=== PATIENT | female | born 1935 | race Caucasian/White ===

== ENCOUNTER → 2016-12-29 | Outpatient (CLI) | payer OTHER ==
[~2016-12-29] MED LIST: AMLO5TAB2 PO; ATOR20TA9 PO; CHOL10002 PO; CYCL1DRO EACHEYE; Clopidogrel Bisulfate PO; ESTR30CR VG; LISI-170 PO; METO25TA35 PO; OMEP-110 PO; magnesium PO; omega 3 PO
== END | disposition home or self-care (01) ==
LOC: CVU 09:44
PROVIDERS: ATTEND Internal Medicine Cardiovascular Disease
DX: I65.23 Occlusion and stenosis of bilateral carotid arteries (principal); I10 Essential (primary) hypertension; I25.2 Old myocardial infarction; Z98.890 Other specified postprocedural states
CPT/HCPCS: 93880

== ENCOUNTER → 2017-04-22 | Outpatient (CLI) | payer OTHER ==
[~2017-04-22] MED LIST changes: +ASPI-515 PO; +CLOP75TA PO; +RANI300T3 PO
== END | disposition home or self-care (01) ==
LOC: CFH 13:02
PROVIDERS: ATTEND Internal Medicine
DX: Z12.31 Encounter for screening mammogram for malignant neoplasm of breast (principal); Z80.3 Family history of malignant neoplasm of breast
CPT/HCPCS: G0202

== ENCOUNTER → 2017-10-26 | Outpatient (CLI) | payer OTHER | END | disposition home or self-care (01) | LOC: CVU 14:48 | PROVIDERS: ATTEND Internal Medicine Cardiovascular Disease | DX: I65.23 Occlusion and stenosis of bilateral carotid arteries (principal) | CPT/HCPCS: 93880 ==

== ENCOUNTER 2018-01-21 09:34 | Observation (INO) | payer OTHER ==
[~2018-01-21] VITALS: Ht 149.9 cm; Wt 58.8 kg
[~2018-01-21 09:34] MED LIST changes: +APIX2.5T PO; +LEVO25TA2 PO
[2018-01-21] MEDS ORDERED: ASPIRIN 81 MG TABLET CHEW ONE (09:59)
[2018-01-21] MEDS ORDERED: ASPIRIN 81 MG TABLET CHEW PO ONE (10:00)
[2018-01-21 10:28] LABS: BASOPHILS # (AUTO) 0.02 x10^3/uL (0-0.1); BASOPHILS % (AUTO) 0 % (0-1); EOSINOPHILS # (AUTO) 0.32 x10^3/uL (0-0.4); EOSINOPHILS % (AUTO) 5 % (1-7); LYMPHOCYTES # (AUTO) 1.61 x10^3/uL (1-3.4); LYMPHOCYTES % (AUTO) 23 % (22-44); MD NO; MEAN CORPUSCULAR HEMOGLOBIN 32.9 pg (27.0-34.8); MEAN CORPUSCULAR HGB CONC 34.2 g/dL (32.4-35.8); MEAN CORPUSCULAR VOLUME 96.2 fL (80-100); MEAN PLATELET VOLUME 8.5 fL (7.4-10.4); MONOCYTES # (AUTO) 0.52 x10^3/uL (0.2-0.8); MONOCYTES % (AUTO) 8 % (2-9); NEUTROPHILS # (AUTO) 4.39 x10^3/uL (1.8-6.8); NEUTROPHILS % (AUTO) 64 % (42-75); PLATELET COUNT 222 x10^3/uL (130-400); RED BLOOD COUNT 4.51 x10^6/uL (3.82-5.3); RED CELL DISTRIBUTION WIDTH 14.6 % (9.6-15.2)
[2018-01-21 10:29] LABS: ANION GAP 9 mmol/L (5-15); CALCIUM 8.8 mg/dL (8.5-10.1); CHLORIDE 103 mmol/L (98-107); CREATININE 0.99 mg/dL (0.55-1.02)
[2018-01-21 10:33] LABS: TROPONIN I < 0.015 ng/mL (0.000-0.045)
[2018-01-21] MEDS ORDERED: ONDANSETRON 2MG/ML, 2ML IVPush PRN (13:00)
[2018-01-21] MEDS ORDERED: ONDANSETRON ODT 4 MG PO PRN (13:00)
[2018-01-21] MEDS ORDERED: ENOXAPARIN 40 MG/0.4 ML SQ SCH (13:00)
[2018-01-21] MEDS ORDERED: POLYETHYLENE GLYCOL 17 GM PACKET PO PRN (13:00)
[2018-01-21] MEDS ORDERED: LABETALOL 5MG/ML, 20ML IVPush PRN (13:00)
[2018-01-21] MEDS ORDERED: morphine SULFATE 10 MG/ML, 1ML IVPush PRN (13:00)
[2018-01-21 13:46] LABS: TROPONIN I < 0.015 ng/mL (0.000-0.045)
[2018-01-21 13:52] VITALS: BP 138/84
[2018-01-21 14:41] VITALS: BP 120/76
[2018-01-21 19:19] LABS: TROPONIN I < 0.015 ng/mL (0.000-0.045)
[2018-01-21 20:36] VITALS: BP 109/58
[2018-01-21] MEDS: APIXABAN 2.5 MG TABLET PO SCH (20:43)
[2018-01-21] MEDS: METOPROLOL TARTRATE 25 MG TABLET PO SCH (20:44)
[2018-01-21] MEDS: LISINOPRIL 20 MG TABLET PO SCH (20:44)
[2018-01-21] MEDS ORDERED: ATORVASTATIN 20 MG TABLET PO SCH (22:00)
[2018-01-21] MEDS: FAMOTIDINE 20 MG TABLET PO SCH (23:37)
[2018-01-22 01:49] VITALS: BP 103/61
[2018-01-22 05:36] LABS: BASOPHILS # (AUTO) 0.06 x10^3/uL (0-0.1); BASOPHILS % (AUTO) 1 % (0-1); EOSINOPHILS # (AUTO) 0.31 x10^3/uL (0-0.4); EOSINOPHILS % (AUTO) 4 % (1-7); LYMPHOCYTES # (AUTO) 1.59 x10^3/uL (1-3.4); LYMPHOCYTES % (AUTO) 22 % (22-44); MD NO; MEAN CORPUSCULAR HEMOGLOBIN 32.2 pg (27.0-34.8); MEAN CORPUSCULAR HGB CONC 33.5 g/dL (32.4-35.8); MEAN CORPUSCULAR VOLUME 96.2 fL (80-100); MEAN PLATELET VOLUME 8.5 fL (7.4-10.4); MONOCYTES # (AUTO) 0.71 x10^3/uL (0.2-0.8); MONOCYTES % (AUTO) 10 % (2-9); NEUTROPHILS # (AUTO) 4.74 x10^3/uL (1.8-6.8); NEUTROPHILS % (AUTO) 64 % (42-75); PLATELET COUNT 208 x10^3/uL (130-400); RED BLOOD COUNT 4.23 x10^6/uL (3.82-5.3); RED CELL DISTRIBUTION WIDTH 14.8 % (9.6-15.2)
[2018-01-22 05:50] LABS: CHLORIDE 105 mmol/L (98-107)
[2018-01-22] MEDS ORDERED: LEVOTHYROXINE 25 MCG TABLET PO SCH (06:00)
[2018-01-22 06:28] LABS: ALANINE AMINOTRANSFERASE 17 U/L (12-78); ALBUMIN 3.6 g/dL (3.4-5.0); ALKALINE PHOSPHATASE 80 U/L (45-117); ANION GAP 10 mmol/L (5-15); BILIRUBIN,TOTAL 0.5 mg/dL (0.2-1.0); CALCIUM 8.7 mg/dL (8.5-10.1); CREATININE 0.86 mg/dL (0.55-1.02); TOTAL PROTEIN 7.1 g/dL (6.4-8.2)
[2018-01-22 06:38] VITALS: BP 112/72
[2018-01-22] MEDS ORDERED: REGADENOSON 0.4 MG/5 ML SYRINGE ONE (08:13)
[2018-01-22] MEDS ORDERED: ATORVASTATIN 20 MG TABLET PO SCH (09:00)
[2018-01-22] MEDS ORDERED: CHOLECALCIFEROL 1,000 UNIT TABLET PO SCH (09:00)
[2018-01-22] MEDS ORDERED: SENNA/DOCUSATE TABLET PO SCH (09:00)
[2018-01-22] MEDS ORDERED: AMLODIPINE 5 MG TABLET PO SCH (09:00)
[2018-01-22 10:02] VITALS: BP 112/73
[2018-01-22] MEDS: APIXABAN 2.5 MG TABLET PO SCH (10:04)
[2018-01-22] MEDS: FAMOTIDINE 20 MG TABLET PO SCH (10:05)
[2018-01-22] MEDS: LISINOPRIL 20 MG TABLET PO SCH (10:05)
[2018-01-22] MEDS: METOPROLOL TARTRATE 25 MG TABLET PO SCH (10:07)
[2018-01-22 13:48] VITALS: BP 137/84
[2018-01-22 14:26] VITALS: BP 117/80
== END 2018-01-22 16:10 | disposition home or self-care (01) ==
LOC: ED 10:38 → EDIP 12:11 → 5SO 13:52 → DCLOUNGE 01-22 16:10
PROVIDERS: ADMIT Hospitalist; ATTEND Hospitalist
DX: R07.89 Other chest pain (principal); E03.9 Hypothyroidism, unspecified; E78.5 Hyperlipidemia, unspecified; I50.20 Unspecified systolic (congestive) heart failure; I11.0 Hypertensive heart disease with heart failure; D68.69 Other thrombophilia; I48.91 Unspecified atrial fibrillation; K21.9 Gastro-esophageal reflux disease without esophagitis; I25.2 Old myocardial infarction; I25.10 Atherosclerotic heart disease of native coronary artery without angina pectoris; Z86.73 Personal history of transient ischemic attack (TIA), and cerebral infarction without residual deficits; Z79.01 Long term (current) use of anticoagulants
CPT/HCPCS: 36415; 71046; 78452; 80048; 80053; 82040; 83735; 83880; 84100; 84443; 84484; 85025; 93005; 93017; 99285; A9502; C9898; G0378; J2785

== ENCOUNTER 2018-08-22 18:21 | Inpatient (IN) | payer MEDICARE, OTHER ==
[~2018-08-22] VITALS: Ht 152.4 cm; Wt 57.8 kg
[~2018-08-22 18:21] MED LIST changes: +AMLO-150 PO; -AMLO5TAB2 PO; +ATOR20TA37 PO; -ATOR20TA9 PO
--- NOTE | 2018-08-22 19:13 | NUR ---
Pt presents for GIB. Pt states intermittent diarrhea x 2 weeks, worse today with bright red blood in stool at 1700 today. Pt denies dizziness. Mild nausea. Mild ABD tenderness to lower quads. No fevers. VSS.
[2018-08-22] MEDS ORDERED: SODIUM CHLORIDE FLUSH 10ML SYR IVF ONE (20:00)
[2018-08-22 20:03] LABS: BASOPHILS # (AUTO) 0.01 x10^3/uL (0-0.1); BASOPHILS % (AUTO) 0 % (0-1); EOSINOPHILS # (AUTO) 0.01 x10^3/uL (0-0.4); EOSINOPHILS % (AUTO) 0 % (1-7); LYMPHOCYTES # (AUTO) 0.91 x10^3/uL (1-3.4); LYMPHOCYTES % (AUTO) 8 % (22-44); MD NO; MEAN CORPUSCULAR HEMOGLOBIN 31.9 pg (27.0-34.8); MEAN CORPUSCULAR HGB CONC 34.3 g/dL (32.4-35.8); MEAN CORPUSCULAR VOLUME 92.9 fL (80-100); MEAN PLATELET VOLUME 8.3 fL (7.4-10.4); MONOCYTES # (AUTO) 0.72 x10^3/uL (0.2-0.8); MONOCYTES % (AUTO) 7 % (2-9); NEUTROPHILS % (AUTO) 85 % (42-75); PLATELET COUNT 208 x10^3/uL (130-400); RED BLOOD COUNT 4.62 x10^6/uL (3.82-5.3)
[2018-08-22 20:14] LABS: INTERNATIONAL NORMALIZED RATIO 1.08 (0.93-1.1); PROTHROMBIN TIME 11.4 Seconds (9.6-11.5)
[2018-08-22 20:15] LABS: ALANINE AMINOTRANSFERASE 23 U/L (12-78); ALBUMIN 3.8 g/dL (3.4-5.0); ANION GAP 7 mmol/L (5-15); CALCIUM 8.5 mg/dL (8.5-10.1); CHLORIDE 103 mmol/L (98-107); CREATININE 0.91 mg/dL (0.55-1.02)
[2018-08-22 20:17] LABS: ALKALINE PHOSPHATASE 96 U/L (45-117); BILIRUBIN,TOTAL 0.5 mg/dL (0.2-1.0); TOTAL PROTEIN 7.4 g/dL (6.4-8.2)
--- NOTE | 2018-08-22 20:17 | NUR ---
iv placed, pt to have CT with contrast. Pt resting comfortable, cardiac and VS monitoring. call light in reach. pt breathing E/U, no changes. will monitor.
--- NOTE | 2018-08-22 20:45 | NUR ---
PT CONTINUES TO REST AWAITING IMAGING. NO CHANGES. CALL LIGHT IN REACH.
--- NOTE | 2018-08-22 21:08 | NUR ---
PT UP TO RESTROOM TO VOID WITH STEADY GAIT.
--- NOTE | 2018-08-22 21:12 | NUR ---
PT AMBULATED BACK TO ROOM WITH STEAYD GAIT. PT TO CT.
--- NOTE | 2018-08-22 21:24 | NUR ---
PT RETURN FROM CT. PT TO HAVE EKG.
[2018-08-22] MEDS ORDERED: OMNIPAQUE 350 MG/ML, 100ML BOTTLE ONE (21:30)
--- NOTE | 2018-08-22 21:43 | NUR ---
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
[2018-08-22] MEDS ORDERED: CIPROFLOXACIN/PMX 400MG/200ML 200 ML IV ONE (22:00)
[2018-08-22] MEDS ORDERED: METRONIDAZOLE PMX 500MG/100ML 100 ML IV ONE (22:00)
--- NOTE | 2018-08-22 22:08 | NUR ---
PT RESTING COMFORTABLY, STOOL SAMPLE NEEDED. PT STATES SHE IS UNABLE TO PROVIDE STOOL SAMPLE AT THIS TIME.
--- NOTE | 2018-08-22 22:27 | NUR ---
PT REPORTS LAST DIARRHEA EPISODE AT 3PM TODAY, PT STATES SINCE THEN SHE HAS ONLY HAD BLOODY STOOLS. PT RESTING COMFORTABLE, MD TO BEDSIDE FOR UPDATE COMPLETE. PT TO BE ADMITTED TO HOSPITAL.
[2018-08-22] MEDS ORDERED: SODIUM CHLORIDE FLUSH 10ML SYR IVF PRN (22:30)
--- NOTE | 2018-08-22 22:53 | NUR ---
PT UP TO RESTROOM WITH STEADY GAIT.
[2018-08-22] MEDS ORDERED: ONDANSETRON 2MG/ML, 2ML IVPush PRN (23:00)
[2018-08-22] MEDS ORDERED: ACETAMINOPHEN 325 MG TABLET PO PRN (23:00)
--- NOTE | 2018-08-22 23:04 | NUR ---
SM TO BEDSIDE AT THIS TIME.
--- NOTE | 2018-08-22 23:25 | NUR ---
report to mat COLON, pt to go to tele floor. pt VSS, conversing well, alert and pleasant. no distress noted.
[2018-08-23 00:05] VITALS: BP 122/74
[2018-08-23] MEDS: LACTATED RINGERS 1,000 ML IV SCH ×2 (01:00→14:34)
[2018-08-23] MEDS: CEFTRIAXONE PMX 1GM/50ML 50 ML IV SCH (01:37)
[2018-08-23] MEDS ORDERED: CYCL1DRO EACHEYE (01:40)
[2018-08-23 02:15] VITALS: BP 136/76
[2018-08-23] MEDS: METRONIDAZOLE PMX 500MG/100ML 100 ML IV SCH ×4 (02:15→21:59)
[2018-08-23 05:03] LABS: BASOPHILS # (AUTO) 0.05 x10^3/uL (0-0.1); BASOPHILS % (AUTO) 1 % (0-1); EOSINOPHILS # (AUTO) 0.07 x10^3/uL (0-0.4); EOSINOPHILS % (AUTO) 1 % (1-7); LYMPHOCYTES % (AUTO) 23 % (22-44); MD NO; MEAN CORPUSCULAR HEMOGLOBIN 32.1 pg (27.0-34.8); MEAN CORPUSCULAR HGB CONC 34.4 g/dL (32.4-35.8); MEAN CORPUSCULAR VOLUME 93.3 fL (80-100); MEAN PLATELET VOLUME 8.5 fL (7.4-10.4); MONOCYTES % (AUTO) 11 % (2-9); NEUTROPHILS # (AUTO) 5.09 x10^3/uL (1.8-6.8); NEUTROPHILS % (AUTO) 64 % (42-75); PLATELET COUNT 192 x10^3/uL (130-400); RED BLOOD COUNT 4.16 x10^6/uL (3.82-5.3)
[2018-08-23 05:14] LABS: CHLORIDE 107 mmol/L (98-107)
[2018-08-23 05:19] LABS: ANION GAP 7 mmol/L (5-15); CALCIUM 8.3 mg/dL (8.5-10.1); CREATININE 0.83 mg/dL (0.55-1.02)
[2018-08-23] MEDS: LEVOTHYROXINE 25 MCG TABLET PO SCH (06:33)
[2018-08-23 07:45] VITALS: BP 118/67
[2018-08-23] MEDS ORDERED: AMLODIPINE 5 MG TABLET PO SCH (09:00)
[2018-08-23] MEDS: METOPROLOL TARTRATE 25 MG TABLET PO SCH ×2 (09:15→21:45)
[2018-08-23] MEDS: FAMOTIDINE 40 MG TABLET PO SCH ×2 (09:15→21:44)
[2018-08-23] MEDS: OMEGA-3/FISH OIL CAPSULE PO SCH (09:15)
[2018-08-23] MEDS: CHOLECALCIFEROL 1,000 UNIT TABLET PO SCH (09:15)
[2018-08-23] MEDS: LISINOPRIL 20 MG TABLET PO SCH ×2 (09:16→21:44)
[2018-08-23] MEDS: MAGNESIUM OXIDE 400 MG TABLET PO SCH ×2 (09:16→21:45)
[2018-08-23 12:34] VITALS: BP 106/63
[2018-08-23 13:18] LABS: CLOSTRIDIUM DIFFICILE ANTIGEN NEGATIVE; CLOSTRIDIUM DIFFICILE TOXIN NEGATIVE (Negative)
[2018-08-23] MEDS ORDERED: ATORVASTATIN 40 MG TABLET PO SCH (21:00)
[2018-08-23] MEDS ORDERED: MOVIPREP POWDER 1 PREP KIT PO SCH (21:00)
[2018-08-23 21:32] VITALS: BP 158/83
[2018-08-24] MEDS: CEFTRIAXONE PMX 1GM/50ML 50 ML IV SCH (01:31)
[2018-08-24 01:41] VITALS: BP 128/65
[2018-08-24] MEDS: METRONIDAZOLE PMX 500MG/100ML 100 ML IV SCH ×2 (03:19→09:31)
[2018-08-24] MEDS: LEVOTHYROXINE 25 MCG TABLET PO SCH (05:12)
[2018-08-24 07:10] LABS: BASOPHILS # (AUTO) 0.03 x10^3/uL (0-0.1); BASOPHILS % (AUTO) 0 % (0-1); EOSINOPHILS # (AUTO) 0.16 x10^3/uL (0-0.4); EOSINOPHILS % (AUTO) 2 % (1-7); LYMPHOCYTES % (AUTO) 19 % (22-44); MD NO; MEAN CORPUSCULAR HEMOGLOBIN 31.9 pg (27.0-34.8); MEAN CORPUSCULAR HGB CONC 33.8 g/dL (32.4-35.8); MEAN CORPUSCULAR VOLUME 94.4 fL (80-100); MEAN PLATELET VOLUME 8.9 fL (7.4-10.4); MONOCYTES # (AUTO) 0.76 x10^3/uL (0.2-0.8); MONOCYTES % (AUTO) 11 % (2-9); NEUTROPHILS # (AUTO) 4.86 x10^3/uL (1.8-6.8); NEUTROPHILS % (AUTO) 67 % (42-75); PLATELET COUNT 209 x10^3/uL (130-400); RED CELL DISTRIBUTION WIDTH 14.3 % (9.6-15.2)
[2018-08-24 07:19] LABS: ANION GAP 9 mmol/L (5-15); CALCIUM 8.7 mg/dL (8.5-10.1); CHLORIDE 108 mmol/L (98-107); CREATININE 0.93 mg/dL (0.55-1.02)
[2018-08-24] MEDS ORDERED: MIDAZOLAM 1 MG/ML, 5ML ONE (07:36)
[2018-08-24] MEDS ORDERED: FENTANYL PF 100 MCG/2ML ONE (07:36)
[2018-08-24 07:53] VITALS: BP 147/74
[2018-08-24] MEDS: OMEGA-3/FISH OIL CAPSULE PO SCH (10:33)
[2018-08-24] MEDS: MAGNESIUM OXIDE 400 MG TABLET PO SCH (10:33)
[2018-08-24] MEDS: FAMOTIDINE 40 MG TABLET PO SCH (10:33)
[2018-08-24] MEDS: CHOLECALCIFEROL 1,000 UNIT TABLET PO SCH (10:33)
[2018-08-24 12:05] VITALS: BP 104/62
[2018-08-24 12:06] VITALS: BP 118/71
[2018-08-24 12:12] VITALS: BP 124/74
== END 2018-08-24 15:10 | disposition home or self-care (01) | DRG 394 ==
LOC: ED 20:46 → EDIP 22:14 → SUATTDRO 22:37 → 5SO 23:47 → DCLOUNGE 08-24 14:45
PROVIDERS: ADMIT Hospitalist; ATTEND Hospitalist
PROC: 0DBN8ZX Excision of Sigmoid Colon, Via Natural or Artificial Opening Endoscopic, Diagnostic (ICD-10-PCS; principal; 2018-08-24 08:00)
DX: K55.031 Focal (segmental) acute (reversible) ischemia of large intestine (principal); K92.1 Melena; E78.5 Hyperlipidemia, unspecified; I11.0 Hypertensive heart disease with heart failure; I25.10 Atherosclerotic heart disease of native coronary artery without angina pectoris; I25.2 Old myocardial infarction; I48.91 Unspecified atrial fibrillation; I50.9 Heart failure, unspecified; I73.00 Raynaud's syndrome without gangrene; I95.9 Hypotension, unspecified; K21.9 Gastro-esophageal reflux disease without esophagitis; K57.30 Diverticulosis of large intestine without perforation or abscess without bleeding; M35.00 Sjogren syndrome, unspecified; Z79.01 Long term (current) use of anticoagulants; Z85.72 Personal history of non-Hodgkin lymphomas; Z86.73 Personal history of transient ischemic attack (TIA), and cerebral infarction without residual deficits; Z90.710 Acquired absence of both cervix and uterus
CPT/HCPCS: 36415; 74177; 80048; 80053; 83605; 83735; 84100; 85025; 85610; 85730; 86850; 86900; 87040; 87324; 88305; 89055; 93005; 96374; 99152; 99153; G0378; J0696; J2250; J3010; Q9967; J7120

== ENCOUNTER → 2018-10-04 | Outpatient (CLI) | payer MEDICARE ==
[~2018-10-04] MED LIST changes: +OMNIPAQUE 350 MG/ML, 75ML BOTTLE ONE
== END | disposition home or self-care (01) ==
LOC: RAD 13:30
PROVIDERS: ATTEND Internal Medicine
DX: G31.89 Other specified degenerative diseases of nervous system (principal); I63.81 Other cerebral infarction due to occlusion or stenosis of small artery
CPT/HCPCS: 70470; Q9967

== ENCOUNTER → 2019-01-13 | Outpatient (CLI) | payer MEDICARE ==
[~2019-01-13] MED LIST changes: -OMNIPAQUE 350 MG/ML, 75ML BOTTLE ONE
== END | disposition home or self-care (01) ==
LOC: CVU 11:49
PROVIDERS: ATTEND Internal Medicine Cardiovascular Disease
DX: I65.23 Occlusion and stenosis of bilateral carotid arteries (principal); I10 Essential (primary) hypertension; E78.5 Hyperlipidemia, unspecified; C85.90 Non-Hodgkin lymphoma, unspecified, unspecified site
CPT/HCPCS: 93880

== ENCOUNTER → 2019-02-25 | Outpatient (CLI) | payer MEDICARE | END | disposition home or self-care (01) | LOC: RAD 10:49 | PROVIDERS: ATTEND Specialist | DX: M54.31 Sciatica, right side (principal) | CPT/HCPCS: 72110 ==

== ENCOUNTER → 2020-04-09 | Outpatient (CLI) | payer MEDICARE | END | disposition home or self-care (01) | LOC: CVU 08:43 | PROVIDERS: ATTEND Internal Medicine Cardiovascular Disease | DX: I65.23 Occlusion and stenosis of bilateral carotid arteries (principal) | CPT/HCPCS: 93880 ==

== ENCOUNTER → 2020-04-25 | Outpatient (CLI) | payer MEDICARE ==
[~2020-04-25] MED LIST changes: +OMNIPAQUE 350 MG/ML, 75ML BOTTLE ONE
== END | disposition home or self-care (01) ==
LOC: CFH 14:05
PROVIDERS: ATTEND Internal Medicine Cardiovascular Disease
DX: J43.9 Emphysema, unspecified (principal); R91.8 Other nonspecific abnormal finding of lung field; J98.4 Other disorders of lung; I25.10 Atherosclerotic heart disease of native coronary artery without angina pectoris; R59.0 Localized enlarged lymph nodes; R04.2 Hemoptysis
CPT/HCPCS: 71260; Q9967

== ENCOUNTER → 2020-05-10 | Outpatient (CLI) | payer MEDICARE ==
[~2020-05-10] MED LIST changes: -OMNIPAQUE 350 MG/ML, 75ML BOTTLE ONE
== END | disposition home or self-care (01) ==
LOC: CFH 11:06
DX: Z12.31 Encounter for screening mammogram for malignant neoplasm of breast (principal); Z13.820 Encounter for screening for osteoporosis; N95.9 Unspecified menopausal and perimenopausal disorder; M85.80 Other specified disorders of bone density and structure, unspecified site
CPT/HCPCS: 77063; 77067; 77080

== ENCOUNTER → 2020-09-06 | Outpatient (CLI) | payer MEDICARE | END | disposition home or self-care (01) | LOC: PETCFH 09:42 | PROVIDERS: ATTEND Internal Medicine | DX: R91.1 Solitary pulmonary nodule (principal); R91.8 Other nonspecific abnormal finding of lung field; R59.0 Localized enlarged lymph nodes | CPT/HCPCS: 78815; A9552 ==

== ENCOUNTER 2020-10-05 08:01 | Day surgery (SDC) | payer MEDICARE ==
[2020-10-03 14:02] LABS: ALBUMIN 3.8 g/dL (3.4-5.0); ANION GAP 5 mmol/L (5-15); CALCIUM 8.9 mg/dL (8.5-10.1); CHLORIDE 97 mmol/L (98-107)
[2020-10-03 14:05] LABS: CREATININE 0.82 mg/dL (0.55-1.02)
[2020-10-03 14:06] LABS: ALANINE AMINOTRANSFERASE 17 U/L (12-78); ALKALINE PHOSPHATASE 91 U/L (45-117); BILIRUBIN,TOTAL 0.5 mg/dL (0.2-1.0); TOTAL PROTEIN 7.4 g/dL (6.4-8.2)
[~2020-10-05] VITALS: Ht 152.4 cm; Wt 56.3 kg
[~2020-10-05 08:01] MED LIST changes: -ASPI-515 PO; +ASPI-963 PO; +ATOR40TA78 PO; +FAMO-79 PO; +LEVO25TA4 PO
[2020-10-05] MEDS ORDERED: CHLORHEXIDINE 15 ML UDC MM ONE (08:30)
[2020-10-05] MEDS ORDERED: LACTATED RINGERS 1,000 ML IV SCH (08:30)
[2020-10-05] MEDS ORDERED: PROPOFOL 50 ML ONE ×2 (09:05→11:00)
[2020-10-05] MEDS ORDERED: FENTANYL PF 100 MCG/2ML ONE (09:38)
[2020-10-05] MEDS ORDERED: MIDAZOLAM 1 MG/ML, 2ML ONE (09:55)
[2020-10-05] MEDS ORDERED: PHENYLEPHRINE 10 MG/ML ONE (10:15)
[2020-10-05] MEDS ORDERED: GLYCOPYRROLATE 0.2MG/1ML, 5ML ONE (10:15)
[2020-10-05] MEDS ORDERED: SUCCINYLCHOLINE 20 MG/ML, 10ML ONE (10:15)
[2020-10-05] MEDS ORDERED: ROCURONIUM 10MG/ML,5ML ONE (10:15)
[2020-10-05] MEDS ORDERED: ONDANSETRON 2MG/ML, 2ML IVPush PRN (11:30)
[2020-10-05] MEDS ORDERED: ACETAMINOPHEN 325 MG TABLET PO PRN (11:30)
[2020-10-05] MEDS ORDERED: FENTANYL PF 100 MCG/2ML IV PRN (11:30)
== END 2020-10-05 13:00 | disposition home or self-care (01) ==
LOC: OUT 08:01
PROVIDERS: ATTEND Internal Medicine
DX: R91.8 Other nonspecific abnormal finding of lung field (principal); R59.1 Generalized enlarged lymph nodes; I10 Essential (primary) hypertension; K21.9 Gastro-esophageal reflux disease without esophagitis; E11.9 Type 2 diabetes mellitus without complications; I25.2 Old myocardial infarction; I48.91 Unspecified atrial fibrillation; M35.00 Sjogren syndrome, unspecified; E78.49 Other hyperlipidemia; G47.33 Obstructive sleep apnea (adult) (pediatric); J44.9 Chronic obstructive pulmonary disease, unspecified; Z20.822 Contact with and (suspected) exposure to COVID-19; Z79.01 Long term (current) use of anticoagulants; Z79.890 Hormone replacement therapy; Z79.899 Other long term (current) drug therapy; Z88.8 Allergy status to other drugs, medicaments and biological substances
CPT/HCPCS: 31652; 36415; 80053; 88172; 88173; 88177; 88305; 93005; J0330; J2250; J2370; J2704; J3010; J7120; U0003; 31629

== ENCOUNTER → 2020-10-24 | Outpatient (CLI) | payer MEDICARE | END | disposition home or self-care (01) | LOC: CFH 11:16 | PROVIDERS: ATTEND Physician Assistant | DX: K59.09 Other constipation (principal); K21.9 Gastro-esophageal reflux disease without esophagitis | CPT/HCPCS: 74018 ==

== ENCOUNTER → 2020-12-28 | Outpatient (CLI) | payer MEDICARE | END | disposition home or self-care (01) | LOC: RAD 14:06 | PROVIDERS: ATTEND Family Medicine | DX: S09.90XA Unspecified injury of head, initial encounter (principal); I65.23 Occlusion and stenosis of bilateral carotid arteries; I63.9 Cerebral infarction, unspecified; G31.9 Degenerative disease of nervous system, unspecified; X58.XXXA Exposure to other specified factors, initial encounter; Y93.89 Activity, other specified; Y92.89 Other specified places as the place of occurrence of the external cause; Y99.8 Other external cause status | CPT/HCPCS: 70450 ==

== ENCOUNTER → 2021-04-09 | Outpatient (CLI) | payer MEDICARE ==
[~2021-04-09] VITALS: Ht 152.4 cm; Wt 53.2 kg
[~2021-04-09] MED LIST changes: +OMEP20TA62 PO; +SULF500T PO
[2021-04-09 13:54] LABS: BASOPHILS % (AUTO) 1 % (0-1); EOSINOPHILS % (AUTO) 4 % (1-7); LYMPHOCYTES % (AUTO) 17 % (22-44); MEAN CORPUSCULAR HEMOGLOBIN 32.4 pg (27.0-34.8); MEAN CORPUSCULAR HGB CONC 33.4 g/dL (32.4-35.8); MEAN PLATELET VOLUME 7.1 fL (7.4-10.4); MONOCYTES % (AUTO) 13 % (2-9); NEUTROPHILS % (AUTO) 64 % (42-75); PLATELET COUNT 224 x10^3/uL (130-400); RED BLOOD COUNT 3.91 x10^6/uL (3.82-5.3); RED CELL DISTRIBUTION WIDTH 15.3 % (9.6-15.2)
[2021-04-09 14:03] LABS: ANION GAP 5 mmol/L (5-15); CALCIUM 8.5 mg/dL (8.5-10.1); CHLORIDE 96 mmol/L (98-107)
[2021-04-09 14:04] LABS: ALANINE AMINOTRANSFERASE 21 U/L (12-78); ALBUMIN 3.6 g/dL (3.4-5.0); ALKALINE PHOSPHATASE 76 U/L (45-117); BILIRUBIN,TOTAL 0.4 mg/dL (0.2-1.0); CREATININE 0.67 mg/dL (0.55-1.02); TOTAL PROTEIN 7.2 g/dL (6.4-8.2)
== END | disposition home or self-care (01) ==
LOC: STAR 08:00 → EDSTATUS 04-11 10:15
PROVIDERS: ATTEND Internal Medicine Gastroenterology
DX: Z01.818 Encounter for other preprocedural examination (principal); D37.1 Neoplasm of uncertain behavior of stomach; I44.7 Left bundle-branch block, unspecified
CPT/HCPCS: 36415; 80053; 85025; 93005

== ENCOUNTER 2021-05-09 08:36 | Day surgery (SDC) | payer MEDICARE ==
[~2021-05-09] VITALS: Ht 152.4 cm; Wt 51.0 kg
[2021-05-09] MEDS ORDERED: PROPOFOL 50 ML ONE (09:11)
[2021-05-09 09:30] VITALS: BP 159/73
[2021-05-09] MEDS ORDERED: LACTATED RINGERS 1,000 ML IV SCH (09:30)
[2021-05-09] MEDS ORDERED: CHLORHEXIDINE 15 ML UDC PO ONE (09:30)
== END 2021-05-09 11:50 | disposition home or self-care (01) ==
LOC: OUT 08:36
PROVIDERS: ATTEND Internal Medicine Gastroenterology
DX: C49.A2 Gastrointestinal stromal tumor of stomach (principal); K29.50 Unspecified chronic gastritis without bleeding; K22.70 Barrett's esophagus without dysplasia; K21.9 Gastro-esophageal reflux disease without esophagitis; I10 Essential (primary) hypertension; I48.91 Unspecified atrial fibrillation; F41.9 Anxiety disorder, unspecified; Z20.822 Contact with and (suspected) exposure to COVID-19; Z85.72 Personal history of non-Hodgkin lymphomas; Z88.8 Allergy status to other drugs, medicaments and biological substances
CPT/HCPCS: 43239; 43242; 87635; 88305; J2704

== ENCOUNTER → 2021-05-13 | Outpatient (CLI) | payer MEDICARE | END | disposition home or self-care (01) | LOC: CFH 12:14 | PROVIDERS: ATTEND Internal Medicine | DX: Z12.31 Encounter for screening mammogram for malignant neoplasm of breast (principal) | CPT/HCPCS: 77063; 77067 ==